=== PATIENT | female | born 1985 | race Caucasian/White ===

== ENCOUNTER 2019-02-14 04:08 | Inpatient (IN) ==
[2019-02-14] MEDS ORDERED: OXYTOCIN 20 UNITS in RINGER'S SOLUTION,LACTATED 1,000 ML IV ONE (04:17)
[2019-02-14] MEDS ORDERED: ceFAZolin SODIUM/DEXTROSE,ISO 2 GM/50 ML BAG IV ONE (04:17)
[2019-02-14] MEDS ORDERED: RINGER'S SOLUTION,LACTATED 1,000 ML IV PRN (04:17)
[2019-02-14 04:35] LABS: Hematocrit 34.5 % (37.0-47.0); Hemoglobin 11.5 gm/dL (12.5-16.0); Mean Cell Volume 87.6 fl (78-100); Mean Corpuscular Hemoglobin 29.2 pg (27-31); Mean Corpuscular Hgb Conc 33.3 g/dl (32-36); Mean Platelet Volume 11.3 fl (8-12.5); Platelet Count 209 K/mm3 (150-450); Red Blood Count 3.94 M/mm3 (4.2-5.4); Red Cell Distribution Width 14.1 % (11.5-14.0); White Blood Count 9.7 K/mm3 (4.0-10.5)
[2019-02-14 04:55] LABS: Albumin * 2.4 gm/dl (3.4-5.0); BUN/Creatinine Ratio 6.5 (9.0-21.6); Bilirubin, Total 0.3 mg/dL (0.0-1.1); Ca. Corrected For Albumin 9.4 mg/dL (8.4-10.2); Calcium * 8.4 mg/dL (7.9-10.9); Carbon Dioxide 22.8 mmol/L (24-32.6); Potassium 3.8 mmol/L (3.4-4.6); Total Protein 6.3 gm/dL (6.2-8.2)
[2019-02-14 05:53] LABS: Cocaine Ur Negative (NEGATIVE); Urine Barbiturate Negative (NEGATIVE); Urine Benzodiazepines Negative (NEGATIVE); Urine Opiates Negative (NEGATIVE); Urine PCP Negative (NEGATIVE); Urine THC Negative (NEGATIVE)
[2019-02-14] MEDS: RINGER'S SOLUTION,LACTATED 1,000 ML IV PRN ×2 (06:10→08:05)
--- NOTE | 2019-02-14 06:47 | ANES ---
Anesthesia Pre Procedure Eval Vitals/Labs: Last Vital Signs Temp 36.5 C 02/14/19 06:20 Pulse 79 02/14/19 06:20 Resp 16 02/14/19 06:20 BP 137/81 02/14/19 06:20 Pulse Ox 97 02/14/19 06:20 HOME MEDICATIONS albuterol sulfate 90 mcg/actuation aerosol inhaler 2 puff IH Q4H PRN g 10/19/17 [Last Taken Unknown] FRF61-DE 400 mcg-om3 35 mg-dha 25 mg-epa 5 mg-fish oil chewable tablet tab PO tab 07/30/18 [Last Taken Unknown] pyridoxine (vitamin B6) 100 mg tablet 100 mg PO DAILY tab 11/01/18 [Last Taken Unknown] aspirin 81 mg tablet,delayed release 81 mg PO DAILY 11/29/18 [Last Taken Unknown] breast pump See Dose Instructions .ROUTE .MEDSUPPLY #1 ea 11/29/18 [Last Taken Unknown] docusate sodium 100 mg capsule 100 mg PO DAILY 11/29/18 [Last Taken Unknown] ondansetron 8 mg disintegrating tablet 8 mg PO Q8H PRN #20 tab 11/29/18 [Last Taken Unknown] sertraline 50 mg tablet 50 mg PO DAILY #90 tab 01/10/19 [Last Taken Unknown] potassium chloride 20 mEq tablet,extended release 20 meq PO TID #30 tab 02/07/19 [Last Taken Unknown] Allergies/Adverse Reactions: Allergies Allergy/AdvReac Type Severity Reaction Status Date / Time cat dander Allergy Mild rhinitis Verified 02/14/19 04:19 grass pollen Allergy Mild rhinitis Verified 02/14/19 04:19 house dust Allergy Mild rhinitis Verified 02/14/19 04:19 mold Allergy Mild rhinitis Verified 02/14/19 04:19 amoxicillin Allergy RASH Verified 02/14/19 04:19 Sulfa (Sulfonamide Allergy Vomiting Verified 02/14/19 04:19 Antibiotics) - Planned Procedure Planned Procedure: Repeat C Section, poss abd scar revision w/Harvey Tub Medication List Reviewed:: Yes Allergies Verified: Yes Medical History (Last Reviewed 02/14/19 @ 06:46 by Kash Hernandez CRNA) History of pre-eclampsia (Chronic) 2015 & 2018 Anxiety (Chronic) Onset Date: ~10/2012 Asthma (Chronic) Onset Date: ~1992 hospitalized in 1993 Anal fissure Onset Date: ~05/2016 Gastric ulcer Hypercholesteremia Hypokalemia Onset Date: ~2015 Anemia affecting Onset Date: ~11/23/15 Arrhythmia Onset Date: ~1992 History of pre-eclampsia Onset Date: ~01/26/16 2016 & 2019 History of wisdom tooth extraction Onset Date: ~2003 Hyperemesis gravidarum Mononucleosis Onset Date: ~1998 Pneumonia Rectal polyp age 17 Surgical History (Last Reviewed 02/14/19 @ 06:46 by Kash Hernandez CRNA) Previous section (Chronic) Delivery by section of full-term Onset Date: ~01/28/16 Arrest of descent, nonreassuring tracing Status post colonoscopy Onset Date: ~01/2004 benign polyp Family History (Last Reviewed 02/14/19 @ 06:46 by Kash Hernandez CRNA) Father Hypertension Mother Hyperlipemia Anxiety Graves disease Osteoporosis Grandmother Glaucoma maternal Grandmother , paternal Hepatitis Diabetes Blind Grandfather , maternal Heart disease Grandfather , paternal Asthma - Family Anesthesia History Family History:: no untoward family reactions to anesthesia, no familial bleeding tendencies, no family history of clotting disorders, no family history of premature - Airway/Neck/Teeth Within Normal Limits:: Yes Teeth Condition: intact Mallampatti Score: 2 Thyromental (T-M) distance: > 6 cm Mandibulo Hyoid distance: > 3 cm - Respiratory Respiratory History: asthma Respiratory Physical: lungs clear Smoking Status: Never smoker Sleep Apnea currently treated: No Sleep Apnea by current assessment: No - Cardiovascular Tolerate Activity: Fair Heart Sounds: S1 & S2, Regular - Anesthesia Assessment and Plan ASA Class: PS, II Anesthesia Type Plan: Block - Bilateral TAP block for post op pain relief, Spinal
[2019-02-14] MEDS ORDERED: PHENYLEPHRINE HCL 10 MG/ML AMPUL ONE (06:51)
[2019-02-14] MEDS ORDERED: EPINEPHrine 1 MG/ML AMPUL ONE (06:51)
[2019-02-14] MEDS ORDERED: BUPIVACAINE HCL/EPINEPHRINE 50 ML VIAL ONE (06:51)
--- NOTE | 2019-02-14 09:15 | OR ---
Operative Report - Dictated Report Narrative: Indication: 33-year-old 2 para 1 with prior section presents with mild preeclampsia and desires repeat section with sterilization via bilateral salpingectomy. status: Planned Pre Operative Diagnosis: 37-week intrauterine . Preeclampsia. Prior section. Desires permanent sterilization. Post Operative Diagnosis: Same. Procedure: Repeat low transverse section. Bilateral salpingectomy Surgeon: Sudeep Flood DO [employer] Veget[employer]: OR Staff Anesthesia: Spinal, TAP block Estimated Blood Loss: 200 mL Urine Output: 100 mL clear urine Fluids Replacement: 2400 mL Drains: Narvaez to gravity Surgical Complications: None Specimens: Placenta to pathology Findings: Male in cephalic presentation born at 0804 on 02/14/2017 with Apgars 9 and 9 weighing 3218 g. Light meconium stained fluid. Normal uterus, tubes, ovaries Technique: The patient was taken to the operating room and placed in dorsal supine position with a left lateral tilt. After adequate spinal anesthesia, narvaez catheter inserted, SCDs placed, and 2 g of Ancef given preoperatively, the abdominal cavity was entered using sharp and blunt dissection. Two rolled laps were placed in the pericolic gutters on either side of the uterus. A transverse incision was made in the lower uterine segment and extended laterally and upwardly with digital traction. Clear fluid was noted upon amniotomy. The was delivered easily. The cord was clamped and cut and was handed off to awaiting streetsweeper operator. The placenta was allowed to deliver spontaneously. The uterus was cleared of clot and debris. Uterine incision was closed with 0 Vicryl using a running stitch. A second imbricating layer was placed. Excellent hemostasis was noted. The rolled laps were removed from the abdominal cavitiy. The peritoneum was closed with a running 3-0 Monocryl. The same suture was used to approximate the rectus and pyramidalis muscles. The fascia was closed with a running 0 Vicryl. The subcutaneous layer was closed with a running 3-0 Monocryl. The same suture was used to approximate the subdermal layer. The skin was closed with a running 4-0 Monocryl and Dermabond. Sponge, lap, needle, and instrument count were correct x 2. Disposition: To post anesthesia care unit in good condition History for MU History for MU Definition: * The number of deliveries resulting in a live the patient experienced prior to current hospitalization * The previous delivery of live twins or any live multiple gestation is considered one live event. *If primagravida or nulliparous is documented select zero for the number of previous live births. Live Events: Live Events: 1
--- NOTE | 2019-02-14 09:28 | ANES ---
Anesthesia Procedure Note Procedure Note: ANESTHESIA PROCEDURE NOTE Date of Procedure: [02/14/2019 Time of procedure: 9:10 AM Performed by: TERRY Harp CRNA, MSN Boilermaker Apprentice: Norma Lara RN. Preprocedure diagnosis: Post section pain. Post procedure diagnosis: Same. Procedure: Bilateral TAP block Indications: Post section pain relief. Findings: See below. Details of the procedure: The patient was brought to PACU and placed in the supine position. The patient was prepped with chlorhexidine and using ultrasound guidance the 3 abdominal muscular planes were identified and lidocaine 1% was infiltrated to the skin of the intended injection site. Under ultrasound guidance the the internal oblique and transverse this abdominis muscle layers were approached with visualization of a 4 inch block needle until the tip of the needle rested in the plane between the muscles. 25 mL bupivacaine 0.5% with 1-200,000 epinephrine was injected and the procedure was repeated on the other side. Please see radiology/ultrasound report for details and images of the procedure. EBL: 0 Fluids: N/A. Specimen: N/A. Post procedure condition: The patient tolerated the procedure well. No complications were noted. Thank you for this consultation. Kash Hernandez CRNA, ARNP, MSN
--- NOTE | 2019-02-14 09:28 | ANES ---
Post Anesthesia Discharge - Transfer of Care Transfer of Care handoff given to nurse: Yes - Discharge from PACU Discharge from PACU when meets criteria: Yes - Comfortable.
[2019-02-14] MEDS ORDERED: ONDANSETRON HCL/PF 2 MG/ML VIAL IV PRN (10:23)
[2019-02-14] MEDS ORDERED: SIMETHICONE 80 MG TAB.CHEW PO PRN (10:23)
[2019-02-14] MEDS ORDERED: IBUPROFEN 800 MG TABLET PO PRN (10:23)
[2019-02-14] MEDS ORDERED: oxyCODONE HCL/ACETAMINOPHEN 1 TAB TABLET PO PRN (10:23)
[2019-02-14] MEDS ORDERED: BISACODYL 10 MG SUPP.RECT RC PRN (10:23)
[2019-02-14] MEDS ORDERED: SENNOSIDES 8.6 MG TABLET PO PRN (10:23)
--- NOTE | 2019-02-14 11:09 | ANES ---
Post Anesthesia Assessment - Vital Signs Vitals: Last Vital Signs Temp 36.9 C 02/14/19 09:30 Pulse 78 02/14/19 09:30 Resp 19 02/14/19 09:30 BP 120/81 02/14/19 09:30 Pulse Ox 97 02/14/19 09:30 Airway Patency: Normal - Mental Status Level Of Consciousness: Awake, Alert, Appropriate - Pain Level Pain Score: 0 - N/V Assessment Nausea/Vomiting Presence: None Dehydration:: No
[2019-02-14] MEDS: IBUPROFEN 800 MG TABLET PO PRN ×2 (11:51→19:00)
[2019-02-14] MEDS ORDERED: ACETAMINOPHEN 325 MG TABLET PO PRN (19:47)
[2019-02-14] MEDS: DOCUSATE SODIUM 100 MG CAPSULE PO SCH (20:59)
[2019-02-15] MEDS: IBUPROFEN 800 MG TABLET PO PRN ×2 (06:56→20:14)
[2019-02-15] MEDS: DOCUSATE SODIUM 100 MG CAPSULE PO SCH ×3 (07:54→20:12)
[2019-02-15] MEDS ORDERED: SERTRALINE HCL 50 MG TABLET PO SCH (09:00)
[2019-02-15] MEDS ORDERED: ALBUTEROL SULFATE 2.5 MG/0.5 ML VIAL.NEB IH PRN (12:28)
--- NOTE | 2019-02-15 12:28 | PN ---
Subjective - Date and Time Seen Date: 02/15/19 Time: 12:23 Subjective Narrative: Denies headache or visual changes. Pain well controlled. Ambulating, urinating, eating without difficulty. Objective - Review of Systems Generalized/Overall Review: Denies: Chills, Fever, Fatigue EENTM: Reports: No Symptoms Reported Respiratory: Reports: No Symptoms Reported Cardiac: Reports: No Symptoms Reported Abdominal: Denies: Nausea, Vomiting Genitourinary Symptoms: Reports: No Symptoms Reported Musculoskeletal Complaints: Reports: No Symptoms Reported Neurological: Reports: No Symptoms Reported Skin: Reports: No Symptoms Reported Endocrine: Reports: No Symptoms Reported - Vitals Vitals: Last Vital Signs Temp 36.6 C 02/15/19 07:30 Pulse 82 02/15/19 07:30 Resp 18 02/15/19 07:30 BP 137/90 H 02/15/19 07:30 Pulse Ox 97 02/15/19 07:30 - Exam Constitutional: Present: Alert, Oriented x3, Cooperative, No distress ENT Exam: Present: hearing grossly normal Respiratory: Present: no respiratory distress Cardiovascular/Chest: Present: regular rate, rhythm Abdomen: Present: soft, nondistended, no rebound tenderness, tender - appropriately, other - incision clean, dry, intact, no sign of infection /Rectal: Present: Other - uterus - firm, at umbilicus -1 Neurologic: Present: alert, normal mood/affect, oriented x 3 Appearance: Present: appropriate appearance, appropriate insight Eye contact: Present: cooperative, good eye contact, normal speech Thoughts: Present: normal thought pattern, normal mood /affect Cauti Physician Documentation - Urinary Catheter Management Urethral (Yoon) Date of Insertion: 02/14/19 Time of Insertion: 07:30 Assessment/Plan Plan Narrative: Continue routine post-operative care and monitoring BP. Increase activity as tolerated. Resume home meds. - Problems/Diagnosis (1) Status post repeat low transverse section Problem: Acute (2) Preeclampsia Problem: Acute Qualifiers: Trimester: third trimester (3) Anxiety Problem: Chronic (4) Asthma Problem: Inactive Qualifiers: Asthma severity: mild Asthma persistence: intermittent Asthma complication type: uncomplicated Qualified Code(s): J45.20 - Mild intermittent asthma, uncomplicated
[2019-02-15] MEDS: SERTRALINE HCL 50 MG TABLET PO SCH (20:13)
[2019-02-16] MEDS ORDERED: PRENATAL VITS96/IRON FUM/FOLIC 1 TAB TABLET PO SCH (09:00)
[2019-02-16] MEDS ORDERED: DOCUSATE SODIUM 100 MG CAPSULE PO SCH (09:00)
[2019-02-16] MEDS: SERTRALINE HCL 50 MG TABLET PO SCH (09:11)
[2019-02-16] MEDS: DOCUSATE SODIUM 100 MG CAPSULE PO SCH ×2 (09:11→20:51)
[2019-02-16] MEDS ORDERED: CALCIUM CARBONATE 500 MG TAB.CHEW PO PRN (14:12)
[2019-02-16] MEDS: NIFEdipine 10 MG CAPSULE PO PRN ×2 (14:16→15:21)
--- NOTE | 2019-02-16 16:18 | PN ---
Subjective - Date and Time Seen Date: 02/16/19 Time: 16:16 Objective - Vitals Vitals: Last Vital Signs Temp 37.0 C 02/16/19 13:50 Pulse 90 02/16/19 15:23 Resp 18 02/16/19 13:50 BP 174/105 H 02/16/19 15:23 Pulse Ox 98 02/16/19 13:50 [Patient denies complaints. Ambulating well. Tolerating regular diet. Pain well controlled.] Lochia wnl. Abdomen - soft, appropriately tender Incision - [clean, dry, intact] Uterus - firm, at umbilicus -[2] DTR-2/4, no clonus . No calf tenderness Impression: Post op day #2 s/p repeat section. Preeclampsia-now with elevated blood pressures in severe range Plan: Continue routine post-operative/ care. Blood pressures responded to nifedipine. Will start on long-acting dose in a.m. Continue to monitor closely for signs or symptoms of preeclampsia. Cauti Physician Documentation - Urinary Catheter Management Urethral (Yoon) Date of Insertion: 02/14/19 Time of Insertion: 07:30 Assessment/Plan - Problems/Diagnosis (1) Status post repeat low transverse section Problem: Acute (2) Preeclampsia Problem: Acute Qualifiers: Trimester: third trimester (3) Anxiety Problem: Chronic (4) Asthma Problem: Inactive Qualifiers: Asthma severity: mild Asthma persistence: intermittent Asthma complication type: uncomplicated Qualified Code(s): J45.20 - Mild intermittent asthma, uncomplicated
[2019-02-16 20:50] VITALS: BP 128/85
[2019-02-17] MEDS ORDERED: NIFEdipine 30 MG TAB.SR.24H PO SCH ×2 (09:00)
--- NOTE | 2019-02-17 14:05 | PN ---
Subjective - Date and Time Seen Date: 02/17/19 Time: 13:47 - Seen this am. Computer down. Subjective Narrative: Denies CARDENAS, visual changes, epigastric pain. well. Objective - Review of Systems Generalized/Overall Review: Reports: No Symptoms Reported EENTM: Reports: No Symptoms Reported Respiratory: Reports: No Symptoms Reported Cardiac: Reports: No Symptoms Reported Abdominal: Reports: No Symptoms Reported Genitourinary Symptoms: Reports: No Symptoms Reported Musculoskeletal Complaints: Reports: No Symptoms Reported Neurological: Reports: No Symptoms Reported Skin: Reports: No Symptoms Reported - Vitals Vitals: Last Vital Signs Temp 36.8 C 02/16/19 18:50 Pulse 104 H 02/16/19 18:50 Resp 18 02/16/19 18:50 BP 128/85 02/16/19 20:50 Pulse Ox 98 02/16/19 18:50 - Exam Constitutional: Present: Alert, Oriented x3, Cooperative Breasts: Present: Exam deferred Respiratory: Present: lungs clear, no respiratory distress Cardiovascular/Chest: Present: regular rate, rhythm Abdomen: Present: soft, nontender, no rebound tenderness, other - incision healing well. /Rectal: Present: Other - uterus firm @ u-3 Extremity: Present: no pedal edema, no calf tenderness Skin Exam: Present: normal color, warm/dry, no cyanosis Neurologic: Present: music engineer II-XII nml as tested, normal mood/affect, oriented x 3 Appearance: Present: appropriate appearance, appropriate insight Eye contact: Present: cooperative, good eye contact Thoughts: Present: normal thought pattern Cauti Physician Documentation - Urinary Catheter Management Urethral (Yoon) Date of Insertion: 02/14/19 Time of Insertion: 07:30 Assessment/Plan Plan Narrative: Routine d/c instructions with preeclampsia precautions. F/u in 3-4 days for BP check. Take Procardia XL 30mg/d. - Problems/Diagnosis (1) Status post repeat low transverse section Problem: Acute (2) Preeclampsia Problem: Acute Qualifiers: Trimester: third trimester (3) Anxiety Problem: Chronic (4) Asthma Problem: Inactive Qualifiers: Asthma severity: mild Asthma persistence: intermittent Asthma complication type: uncomplicated Qualified Code(s): J45.20 - Mild intermittent asthma, uncomplicated
== END 2019-02-17 11:30 | disposition home or self-care (01) | DRG 785 ==
LOC: OB 04:08
PROVIDERS: ADMIT Obstetrics & Gynecology; ATTEND Obstetrics & Gynecology
CPT/HCPCS: 36415; 59025; 80053; 80307; 85025; 88302; 88307